=== PATIENT | female | born 2000 | race African-American/Black ===

== ENCOUNTER 2024-03-30 06:52 | Emergency (ER) | payer OTHER, SELFPAY ==
[2024-03-30 07:15] VITALS: BP 109/80; PULSE 80; RESP 16; TEMP 36.7; O2SAT 100
[2024-03-30] MEDS: HYDROcodone/acetaminophen (*CRX) 5-325 MG TABLET 1 TAB PO (08:10)
--- NOTE | 2024-03-30 08:58 | ED.SKABFB ---
HPI - Skin/Abscess/Foreign Bdy General Chief complaint: Skin/Abscess/Foreign Body Stated complaint: abcess to buttocks Time Seen by Provider: 03/30/24 07:06 History of Present Illness HPI narrative: Patient is a 23-year-old female who presents ER with pain to the right buttock. Ongoing over last 2 days. Has pain with sitting. Concerned she has infection. No pain around the rectum. No fevers or chills or sweats. Patient is currently 6 weeks in gestation, . She has no pelvic pain/vaginal bleeding/vaginal discharge. No urinary symptoms. Related Data Allergies Allergy/AdvReac Type Severity Reaction Status Date / Time No Known Allergies Allergy Verified 03/30/24 07:12 Review of Systems Constitutional: Constitutional: Reports no additional constitutional complaints Cardiovascular: Cardiovascular: Reports no additional cardiovascular complaints Respiratory: Respiratory: Reports no additional respiratory complaints Gastrointestinal: Gastrointestinal: Reports no additional gastrointestinal complaints Integumentary/Breasts: Comments: Abscess/redness left buttock PMFSH Past Medical History Medical History (Updated 03/30/24 @ 09:27 by Bari Patten MD) Healthy female adult Exam Narrative: GENERAL: Well-appearing, well-nourished, and in no acute distress. HEAD: Normocephalic, atraumatic. CHEST: Clear to auscultation. No respiratory distress. HEART: Regular rate and rhythm. Normal peripheral pulses. EXTREMITIES: Normal range of motion. No edema. SKIN: Warm, dry, no rash. pilonidal cyst on the right side of the gluteal cleft. Tender palpation with slight induration. NEURO: Alert and oriented x3. PSYCH: Normal mood and affect. Course Vital Signs Vital signs: Vital Signs Temperature 98.1 F 03/30/24 07:15 Pulse Rate 80 03/30/24 07:15 Respiratory Rate 16 03/30/24 07:15 Blood Pressure 109/80 03/30/24 07:15 Pulse Oximetry 100 03/30/24 07:15 Temperature 98.1 F 03/30/24 07:15 Pulse Rate 80 03/30/24 07:15 Respiratory Rate 16 03/30/24 07:15 Blood Pressure 109/80 03/30/24 07:15 Pulse Oximetry 100 03/30/24 07:15 Procedures Abscess I/D pilonidal: Date of Incision: 03/30/24 Time of Incision: 08:59 Side (if applicable): right Local Anesthetic: lidocaine 1% and with epi Amount of anesthesia used (mL): 4 Technique: incised with #11 blade Packing used?: iodoform I&D Results: Pus MDM - Skin/Abscess/Foreign Bdy MDM Narrative Medical decision making narrative: Cyst drained. Will refer to general surgery. Discussed wound care. Discharge Plan Discharge Clinical Impression: Pilonidal cyst with abscess Patient Disposition: Home, Self-Care Condition: Stable Instructions: Antibiotic Form, Pilonidal Cyst (ED) Additional Instructions: You had a cystic abscess incised and drained. You will need to remove your packing in 2 days. You should follow-up with general surgery for further evaluation. He will be started on antibiotics to help with your infection. Prescriptions: New cephalexin 500 mg capsule 500 mg PO Q8H Qty: 21 0RF Follow-up/Referrals: Walker Summers MD [Physician] - 1 Week UNKNOWN,DOCTOR [Primary Care Provider] - Stand Alone Forms: Work/School Release IP
== END 2024-03-30 09:39 | disposition home or self-care (01) ==
PROVIDERS: Emergency Provider Emergency Medicine
DX: L05.01 Pilonidal cyst with abscess (principal)
CPT/HCPCS: 10081; 99283; A9270

== ENCOUNTER 2024-06-09 07:45 | Observation (INO) | payer OTHER, SELFPAY ==
[2024-06-09] VITALS (18 sets, daily range): BP systolic 84–117; BP diastolic 51–78; PULSE 70–102; RESP 12–20; TEMP 36.3–36.8; O2SAT 92–100; BMI 26.6
--- NOTE | 2024-06-09 08:14 | ED.SKABFB ---
HPI - Skin/Abscess/Foreign Bdy General Chief complaint: Skin/Abscess/Foreign Body Stated complaint: I have a boil on my butt Time Seen by Provider: 06/09/24 08:00 Source: patient Mode of arrival: ambulatory Limitations: no limitations History of Present Illness HPI narrative: 23 years old female came to the ED by private car complaining of pain and lump like feeling at the left buttock close to her anus started few days ago. She denies any fever, chills, nausea, vomiting. Patient is 15 weeks . On vitamins. Related Data Home Medications Medication Instructions Recorded Confirmed vit no.95-ferrous 1 tablet PO DAILY 06/09/24 06/09/24 fumarate 28 mg-folic acid 800 mcg tablet () Allergies Allergy/AdvReac Type Severity Reaction Status Date / Time No Known Allergies Allergy Verified 06/09/24 16:48 Review of Systems Review of Systems: All systems reviewed & are unremarkable except as noted in HPI and below PMFSH Past Medical History Medical History 16 weeks gestation of Healthy female adult Perirectal abscess Social History Social History Smoking status: Never smoker Alcohol intake: former Drinks per week: 10 Substance use: never Substance use type: does not use Do You Feel Safe in your Home?: Yes Lack of Transportation: No Lack of Food: Never True Current Housing: I Have Housing Concerned About Future Housing: No Difficulty Paying Gas/Electric Bills: No Difficulty Paying for Meds: No Currently Unemployed: No Education: Decline to Answer Difficulty w/ Childcare or Family Care: No Spiritual care concerns: No Exam Narrative: General appearance: Well-developed, well-nourished Skin: Normal color, left buttock exam showed 8 x 8 cm skin induration diffusely tender, erythematous 2 cm close to the anus. No discharge Head: Normocephalic, nontraumatic Eyes: Clear conjunctiva ENT: Oropharynx normal, ears normal, nose normal Neck: Supple, nontender Chest and respiratory: Airway patent, no respiratory distress, no accessory muscle use Heart: Regular rate/rhythm Abdomen: Soft, nontender, no organomegaly, quiet bowel sounds Vascular: Normal peripheral pulses, normal capillary refill. Musculoskeletal: Normal range of motion, nontender back Neurologic: Alert and oriented ?3, SYSTEMS SUPPORT SPECIALIST is normal as tested, no gross motor deficit Course Consultations Consultation #1: DR PEREZ CONSULT OB, NPO Date: 06/09/24 Time: 08:38 Consultation #2: DR. FULLER CHECK HEART TONE BEFORE AND AFTER THE PROCEDURE. NO OBGYN MONITORING IF SHE IS LESS THAN 24 WEEKS Date: 06/09/24 Time: 08:46 Vital Signs Vital signs: Vital Signs Temperature 36.6 C 06/09/24 08:03 Pulse Rate 100 06/09/24 08:03 Respiratory Rate 15 06/09/24 08:03 Blood Pressure 99/78 L 06/09/24 08:03 Pulse Oximetry 100 06/09/24 08:03 Temperature 36.6 C 06/10/24 12:01 Pulse Rate 72 06/10/24 12:01 Respiratory Rate 14 06/10/24 12:01 Blood Pressure 99/55 L 06/10/24 12:01 Pulse Oximetry 100 06/10/24 12:01 Oxygen Delivery Room Air 06/10/24 08:50 Oxygen Flow Rate 8 06/09/24 14:30 Fraction of Inspired Oxygen 21 06/10/24 08:35 MDM - Skin/Abscess/Foreign Bdy MDM Narrative Medical decision making narrative: Differential diagnosis perianal abscess DR. JIMÉNEZ WELL TAKE PATIENT TO THE OR FOR INCISION AND DRAINAGE Differential Diagnosis Differential diagnosis: Likely other (As above) Lab Data 06/10/24 07:26
--- NOTE | 2024-06-09 08:47 | PC.NURSE ---
Pt reports last intake 0400 today cereal with milk, denies eating or drinking after that
[2024-06-09 08:55] LABS: Basophils Absolute Auto 0.1 K/mm3 (0.0-0.1); Basophils Percent Auto 0.6 % (0.2-1.2); Eosinophils Absolute Auto 0.1 K/mm3 (0-0.3); Eosinophils Percent Auto 1.3 % (0-4.4); Hematocrit 26.5 % (37.0-47.0); Hemoglobin 9.3 g/dL (12.0-15.0); Immature Granulocyte Absolute 0.04 K/mm3 (0.00-0.031); Immature Granulocyte Percent A 0.5 % (0-0.5); Lymphocytes Percent Auto 16.3 % (18.3-44.2); Mean Corpuscular HGB Conc 35.1 g/dl (32-36); Mean Corpuscular Hemoglobin 31.7 pg (26-34); Mean Corpuscular Volume 90.4 fl (80-100); Mean Platelet Volume 9.1 fl (7.4-10.4); Monocytes Absolute Auto 0.5 K/mm3 (0.1-0.6); Monocytes Percent Auto 6.5 % (2.6-8.5); Neutrophils Percent Auto 74.8 % (45.5-73.1); Platelet Count Result 196 k/mm3 (150-375); Red Blood Count 2.93 M/mm3 (4.2-5.4); Red Cell Distribution Width 13.5 % (11.5-14.5)
[2024-06-09 09:09] LABS: Alanine Aminotransferase 43 U/L (6-35); Alkaline Phosphatase 90 U/L (38-126); Anion Gap 9 mmol/L (4-12); Aspartate Amino Transferase 19 U/L (14-36); Bilirubin,Total 0.4 mg/dL (0.2-1.3); Blood Urea Nitrogen 5 mg/dL (7-17); Calcium 8.7 mg/dL (8.4-10.2); Carbon Dioxide 24 mmol/L (22-30); Chloride 105 mmol/L (98-107); Estimated CRCL calculation 149 ml/min; Estimated Glomerular Filt Rate > 60; Glucose 78 mg/dL (65-110); Potassium 3.8 mmol/L (3.4-5.0); Sodium 138 mmol/L (137-145)
[2024-06-09] MEDS: ONDANSETRON INJ 4 MG/2 ML VIAL IV PUSH (10:10)
[2024-06-09] MEDS: MORPHINE SULFATE (*CRX) 4 MG/ML INJ IV PUSH (10:11)
--- NOTE | 2024-06-09 13:27 | WPDHPUPDATE1 ---
History and Physical Update Update Date/Time: 06/09/24 13:27 History and Physical has been reviewed, including an updated exam of the patient. There are NO changes in the patient's condition. Risks, benefits, and alternatives have been discussed and questions answered. Patient agrees to proceed with procedure.
--- NOTE | 2024-06-09 13:27 | PM.IMHP ---
H&P: HPI History of Present Illness Date/Time: 06/09/24 13:27 Chief Complaint: Perirectal pain and swelling Narrative: This is a 23-year-old woman who presented to the emergency department with perirectal pain and swelling. She began noticing this about 2 or 3 days ago and it has continued to worsen. She denies any fevers or chills. About 2 months ago she did have a pilonidal abscess but has never had problems with abscesses prior to this. Denies any drainage or rectal bleeding. Review of Systems Review of Systems: All systems reviewed & are unremarkable except as noted in HPI and below Eyes: Eyes: Denies change in vision ENT: Denies hearing loss, Denies neck pain and Denies sore throat Cardiovascular: Cardiovascular: Denies chest pain and Denies dyspnea Respiratory: Respiratory: Denies cough, Denies dyspnea and Denies wheezing Gastrointestinal: Gastrointestinal: Reports as per HPI Genitourinary: Genitourinary: Denies hematuria and Denies dysuria Musculoskeletal: Musculoskeletal: Denies arthralgias, Denies joint swelling and Denies neck pain Allergic/Immunologic: Allergic/Immunologic: Denies wheezing PMFSH Past Medical History Medical History Healthy female adult Meds Home Medications and Allergies Home Medications Medication Instructions Recorded Confirmed Type cephalexin 500 mg capsule 500 mg PO Q8H #21 caps 03/30/24 Rx Allergies Allergy/AdvReac Type Severity Reaction Status Date / Time No Known Allergies Allergy Verified 06/09/24 08:03 Vital Signs Vital Signs - 24 hr 06/09/24 08:03 06/09/24 08:50 06/09/24 09:57 Temperature 36.6 C Pulse Rate 100 94 84 Respiratory Rate 15 15 15 Blood Pressure 99/78 L 97/63 L 105/63 Pulse Oximetry 100 100 100 06/09/24 12:19 06/09/24 13:09 Temperature 36.8 C Pulse Rate 83 88 Respiratory Rate 14 14 Blood Pressure 92/52 L 107/73 Pulse Oximetry 100 100 Exam Const: General: alert; No acute distress Orientation/consciousness: patient oriented x3 Limitations: no limitations HENMT: Head: normocephalic and atraumatic Ears: hearing grossly normal bilaterally Face/Nose/Sinus: Normal external nose present and Normal nares present Mouth: Yes Normal oral and palatal mucosa present and Yes moist mucous membranes Eyes: General: appearance normal, both eyes and all related structures Conjunctivae: conjunctivae normal Sclera: sclerae normal Pupils: Equal, round and reactive pupils present EOM: EOMs intact bilaterally Neck: Neck: normal visual inspection, full ROM, no lymphadenopathy, supple and no JVD Lymphatic: no lymphadenopathy noted Chest: Chest palpation & inspection: normal inspection of the chest Resp: Effort & Inspection: normal respiratory effort and able to speak in complete sentences Auscultation: clear to auscultation bilaterally Percussion: percussion normal Cardio: Jugular venous distension: no JVD Rate: regular rate Rhythm: regular rhythm Heart sounds: S1 normal heart sound present and S2 normal heart sound present Peripheral pulses: Peripheral pulses 2+ throughout GI: Inspection: normal to inspection GI Palp: No abdominal tenderness, Yes Soft to palpation, No Guarding due to palpation present (GI), No Hernia present and No Rebound tenderness present Percussion: Yes normal to percussion Auscultation: normal bowel sounds Rectal Exam: other (Right perirectal pain and fluctuance measuring 4-6 cm) : General: Yes no CVA tenderness Back/Spine/Pelvis: Back: no CVA tenderness Skin: General skin exam: normal color and dry skin Neuro: General: patient oriented x3, gait normal, moves all extremities, no focal motor deficits and CN's II-XI intact bilaterally Cranial nerves: Yes Equal, round and reactive pupils present Speech: normal speech Extrem: General: normal to inspection and capillary refill normal H&P: Results Labs Labs: Short CBC 06/09/24 Range/Units
--- NOTE | 2024-06-09 13:30 | SUR.PREOP ---
Per Dr. Isra conner to give zosyn now.
--- NOTE | 2024-06-09 13:38 | WPDANESEPP ---
Anes - Eval Pre Procedure Procedure: Operation Date: 06/09/24 16:00 Proposed Procedures p Incision and Drainage Hyacinth-Rectal Abscess - Lane Dhaliwal DO Date/Time: 06/09/24 13:38 Preop Diagnosis: Hyacinth rectal abscess Pre Op Diagnosis: I have a boil on my butt Patient Data Age: 23 Gender: F Height: 1.55 m Weight: 64 kg Last Vital Signs Temp 98.2 F 06/09/24 13:09 Pulse 88 06/09/24 13:09 Resp 14 06/09/24 13:09 BP 107/73 06/09/24 13:09 Pulse Ox 100 06/09/24 13:09 Allergies Allergy/AdvReac Type Severity Reaction Status Date / Time No Known Allergies Allergy Verified 06/09/24 13:36 Home Medications Medication Instructions Recorded Confirmed Type vit no.95-ferrous tablet PO 06/09/24 History fumarate 28 mg-folic acid 800 mcg tablet () Laboratory Tests 06/09/24 08:46 WBC 8.0 K/mm3 (4.5-10.0) RBC 2.93 L M/mm3 (4.2-5.4) Hgb 9.3 L g/dL (12.0-15.0) Hct 26.5 L % (37.0-47.0) MCV 90.4 fl (80-100) MCH 31.7 pg (26-34) MCHC 35.1 g/dl (32-36) RDW 13.5 % (11.5-14.5) Plt Count 196 k/mm3 (150-375) MPV 9.1 fl (7.4-10.4) Immature Gran % (Auto) 0.5 % (0-0.5) Neut % (Auto) 74.8 H % (45.5-73.1) Lymph % (Auto) 16.3 L % (18.3-44.2) [place] % (Auto) 6.5 % (2.6-8.5) Eos % (Auto) 1.3 % (0-4.4) Baso % (Auto) 0.6 % (0.2-1.2) Lymph # (Auto) 1.30 K/mm3 (0.9-3.2) [place] # (Auto) 0.5 K/mm3 (0.1-0.6) Eos # (Auto) 0.1 K/mm3 (0-0.3) Baso # (Auto) 0.1 K/mm3 (0.0-0.1) Abs Immat Gran (auto) 0.04 H K/mm3 (0.00-0.031) Absolute Neuts (auto) 6.0 K/mm3 (1.3-6.7) Absolute Nucleated RBC 0.000 K/mm3 (0.0-0.012) Nucleated RBC % 0.0 % (0.0-0.2) Sodium 138 mmol/L (137-145) Potassium 3.8 mmol/L (3.4-5.0) Chloride 105 mmol/L (98-107) Carbon Dioxide 24 mmol/L (22-30) Anion Gap 9 mmol/L (4-12) BUN 5 L mg/dL (7-17) Creatinine 0.40 L mg/dL (0.7-1.0) Estim Creat Clear Calc 149 ml/min Estimated GFR > 60 (59 - ) Glucose 78 mg/dL (65-110) Calcium 8.7 mg/dL (8.4-10.2) Total Bilirubin 0.4 mg/dL (0.2-1.3) AST 19 U/L (14-36) ALT 43 H U/L (6-35) Alkaline Phosphatase 90 U/L (38-126) Total Protein 7.0 g/dL (6.3-8.2) Albumin 4.0 g/dL (3.5-5.1) Patient hx anesthesia problems: none Family hx anesthesia problems: none Results Review: All pre-operative results and documents have been reviewed as part of the pre-operative evaluation. [facility] Past Medical History Medical History 16 weeks gestation of Healthy female adult Perirectal abscess Exam Day of Procedure 06/09/24 13:38 Patient weight: overweight Heart: regular rate and rhythm Lungs: clear to auscultation Airway: Mallampati scale class II
[2024-06-09] MEDS: PIPERACILLN/TAZ 3.375GM/NS50ML 3.375 GM/50 ML BAG IVPB ×2 (13:44→13:50)
[2024-06-09] MEDS: LACTATED RINGERS 1,000 ML 30 ML IV CONT (13:44)
--- NOTE | 2024-06-09 13:45 | WPDANESEPPF ---
Anes - Initial Pre Proc Eval Procedure: Operation Date: 06/09/24 16:00 Proposed Procedures p Incision and Drainage Hyacinth-Rectal Abscess - Lane Dhaliwal DO Date/Time: 06/09/24 13:45 Surgeon: Lane Dhaliwal DO Pre Op Diagnosis: I have a boil on my butt Patient Data Age: 23 Gender: F Height: 1.55 m Weight: 63.8 kg Last Vital Signs Temp 36.4 C 06/09/24 13:10 Pulse 99 06/09/24 13:10 Resp 16 06/09/24 13:10 BP 104/66 06/09/24 13:10 Pulse Ox 100 06/09/24 13:10 O2 Del Method Room Air 06/09/24 13:10 Allergies Allergy/AdvReac Type Severity Reaction Status Date / Time No Known Allergies Allergy Verified 06/09/24 13:36 Home Medications Medication Instructions Recorded Confirmed Type vit no.95-ferrous tablet PO 06/09/24 History fumarate 28 mg-folic acid 800 mcg tablet () Laboratory Tests 06/09/24 08:46 WBC 8.0 K/mm3 (4.5-10.0) RBC 2.93 L M/mm3 (4.2-5.4) Hgb 9.3 L g/dL (12.0-15.0) Hct 26.5 L % (37.0-47.0) MCV 90.4 fl (80-100) MCH 31.7 pg (26-34) MCHC 35.1 g/dl (32-36) RDW 13.5 % (11.5-14.5) Plt Count 196 k/mm3 (150-375) MPV 9.1 fl (7.4-10.4) Immature Gran % (Auto) 0.5 % (0-0.5) Neut % (Auto) 74.8 H % (45.5-73.1) Lymph % (Auto) 16.3 L % (18.3-44.2) [place] % (Auto) 6.5 % (2.6-8.5) Eos % (Auto) 1.3 % (0-4.4) Baso % (Auto) 0.6 % (0.2-1.2) Lymph # (Auto) 1.30 K/mm3 (0.9-3.2) [place] # (Auto) 0.5 K/mm3 (0.1-0.6) Eos # (Auto) 0.1 K/mm3 (0-0.3) Baso # (Auto) 0.1 K/mm3 (0.0-0.1) Abs Immat Gran (auto) 0.04 H K/mm3 (0.00-0.031) Absolute Neuts (auto) 6.0 K/mm3 (1.3-6.7) Absolute Nucleated RBC 0.000 K/mm3 (0.0-0.012) Nucleated RBC % 0.0 % (0.0-0.2) Sodium 138 mmol/L (137-145) Potassium 3.8 mmol/L (3.4-5.0) Chloride 105 mmol/L (98-107) Carbon Dioxide 24 mmol/L (22-30) Anion Gap 9 mmol/L (4-12) BUN 5 L mg/dL (7-17) Creatinine 0.40 L mg/dL (0.7-1.0) Estim Creat Clear Calc 149 ml/min Estimated GFR > 60 (59 - ) Glucose 78 mg/dL (65-110) Calcium 8.7 mg/dL (8.4-10.2) Total Bilirubin 0.4 mg/dL (0.2-1.3) AST 19 U/L (14-36) ALT 43 H U/L (6-35) Alkaline Phosphatase 90 U/L (38-126) Total Protein 7.0 g/dL (6.3-8.2) Albumin 4.0 g/dL (3.5-5.1) Patient hx anesthesia problems: none Family hx anesthesia problems: none Results Review: All pre-operative results and documents have been reviewed as part of the pre-operative evaluation. [facility] Past Medical History Medical History 16 weeks gestation of Healthy female adult Perirectal abscess Anes - Eval Final PreProcedure Day of Procedure 06/09/24 13:45 Patient weight: normal Heart: regular rate and rhythm Lungs: clear to auscultation Airway: Mallampati scale class II Neurological: alert and oriented Last oral intake: >/= 8 hours ASA classification: II Emergent: no Anesthetic plan: proceed Anesthesia type and monitoring: general GIVS and standard monitoring Results Review: All pre-operative results and documents have been reviewed as part of the pre-operative evaluation. Informed Consent: The patient's anesthetic plan and its attendant risks and benefits were discussed with the patient/family/POA. Questions were solicited and answers provided to the satisfaction of the patient/family/POA.
[2024-06-09] MEDS: BUPIVACAINE/EPINEPHRINE 0.5% 10 ML VIAL 30 ML INFILTRATE (13:59)
--- NOTE | 2024-06-09 14:23 | P.OP_ITS ---
Procedure Note - Detailed Date of Procedure 06/09/24 Pre-op Diagnosis Perirectal abscess Post-op Diagnosis Same Procedure Performed Incision and drainage of complicated perirectal abscess Surgeon Lane Dhaliwal, DO Anesthesia MAC and Local (0.5% bupivacaine with epinephrine) Indications This is a 23-year-old woman who presented to the emergency department with complaints perirectal pain and swelling. She began having symptoms about 2-3 days ago and they have progressed since then. She denies any fevers or chills. She did have a pilonidal abscess about 2 months ago but denies any other recent infection problems. The patient is about 16 weeks . She denies any other related complications in the past. She was found to have a large right perirectal abscess that was very tender to palpation. Discussions were made with the patient about treatment options and decision was made to p francheska with incision and drainage of perirectal abscess in the operating room under anesthesia. Findings Incision and drainage of perirectal abscess was performed. The patient was found to have about a 6 cm area of fluctuance in the right perirectal region. An incision was made about 2 cm from the anal verge directly into the area fluctuance. About 20 mL of purulence fluid was drained. Cultures were taken for aerobic and anaerobic culture and sensitivity. Loculations were broken up and then the abscess cavity was irrigated with sterile saline. The abscess was then packed with half-inch iodoform gauze. No specimens were obtained for pathology. Description of Procedure Procedure as well as risks, benefits, and alternatives were discussed with the patient. Written consent was obtained and placed in chart prior to procedure. Patient was brought back to surgical suite. She was placed supine on operating table. Time-out was done to confirm patient and procedure. IV sedation was administered by the anesthesia department. The patient was then placed in lithotomy position in stirrups and rotated slightly to the left. Her perirectal region was prepped and draped in sterile fashion using Betadine prep. The area of fluctuance was palpated in the right perirectal region. 0.5% bupivacaine with epinephrine was infiltrated locally over this region. A 2 cm cruciate incision was then made using a 15 blade scalpel directly over the area of fluctuance. I entered into the abscess cavity and about 20 mL of purulence fluid was drained. A curved hemostat was then inserted and loculations were broken up. I then irrigated the cavity with sterile saline. Hemostasis appeared. Then packed the wound with half-inch iodoform gauze. Fluff gauze, ABD pad, and mesh underwear were then applied. The patient was then awakened from anesthesia and transferred to recovery. Estimated Blood Loss 5 Packing Yes (1/2 inch iodoform gauze) Complications No immediate complications Condition Stable Disposition Observation [facility] Billing Surgery - Charge Forward: Surgery Billing
--- NOTE | 2024-06-09 14:33 | SUR.PHASEI ---
RN called OB 1st floor and spoke to Sheeba. RN told her I need heart tones in PACU please.
[2024-06-09] MEDS: fentaNYL CITRATE INJ (*CRX) 100 MCG/2 ML VIAL 25 MCG IV PUSH (15:04)
--- NOTE | 2024-06-09 15:36 | SUR.PHASEI ---
Spoke w/ Loulou in OB and she will be over soon to get the heart tones.
--- NOTE | 2024-06-09 15:50 | SUR.PHASEI ---
Patient meets PACU discharge criteria, OB RN unavailable at this time for heart tones post procedure. Patient placed in extended recovery status.
--- NOTE | 2024-06-09 16:05 | SUR.PHASEI ---
1604: ADRIAN Jamil at the bedside getting heart tones post procedure.
[2024-06-09] MEDS: LACTATED RINGERS 1,000 ML 100 ML IV CONT (16:34)
--- NOTE | 2024-06-09 16:43 | ADMGEN ---
This patient, Belen Giang, was admitted to 3 [facility] Surg Room 309-01. Patient/family oriented to hospital policies and general routines including ID bracelet, bed and alarms, visiting hours, pain management, procedures, bathroom and other care routines, personal items, smoking policy, room service/diet, and visiting hours. Information on how to activate the Rapid Response Team has been discussed. Patient/Family are encouraged to report perceived risks to care and to ask questions if they do not understand what they are told or what they should do.
[2024-06-09] MEDS: metroNIDAZOLE 500 MG/ISO 100ML 500 MG/100 ML BAG 100 MG IVPB ×2 (17:43→23:06)
[2024-06-09] MEDS: HYDROcodone/acetaminophen (*CRX) 7.5-325 MG TABLET 1 TAB PO ×2 (17:47→21:53)
[2024-06-10] MEDS: ONDANSETRON INJ 4 MG/2 ML VIAL IV PUSH (00:03)
[2024-06-10 01:45] VITALS: BP 106/61; PULSE 84; RESP 14; TEMP 36.1; O2SAT 100
[2024-06-10] MEDS: HYDROcodone/acetaminophen (*CRX) 7.5-325 MG TABLET 1 TAB PO ×2 (01:57→10:08)
[2024-06-10] MEDS: metroNIDAZOLE 500 MG/ISO 100ML 500 MG/100 ML BAG 100 MG IVPB (05:34)
[2024-06-10] MEDS: HYDROcodone/acetaminophen (*CRX) 5-325 MG TABLET 1 TAB PO (05:35)
[2024-06-10 05:52] VITALS: BP 105/62; PULSE 89; RESP 14; TEMP 36.1; O2SAT 100
[2024-06-10 08:00] VITALS: BP 115/62; PULSE 82; RESP 16; TEMP 36.8; O2SAT 100
[2024-06-10 08:35] VITALS: O2SAT 100
[2024-06-10 08:47] LABS: Hematocrit 25.9 % (37.0-47.0); Hemoglobin 8.8 g/dL (12.0-15.0); Mean Corpuscular Hemoglobin 31.4 pg (26-34); Mean Corpuscular Volume 92.5 fl (80-100); Mean Platelet Volume 9.8 fl (7.4-10.4); Platelet Count Result 206 k/mm3 (150-375); Red Cell Distribution Width 13.8 % (11.5-14.5)
[2024-06-10] MEDS: polyethylene glycoL 3350 17 GM POWD.PACK PO (08:50)
[2024-06-10 09:02] LABS: Anion Gap 8 mmol/L (4-12); Blood Urea Nitrogen 4 mg/dL (7-17); Calcium 8.8 mg/dL (8.4-10.2); Carbon Dioxide 25 mmol/L (22-30); Chloride 104 mmol/L (98-107); Estimated CRCL calculation 123 ml/min; Estimated Glomerular Filt Rate > 60; Glucose 77 mg/dL (65-110); Potassium 3.7 mmol/L (3.4-5.0); Sodium 137 mmol/L (137-145)
[2024-06-10 12:01] VITALS: BP 99/55; PULSE 72; RESP 14; TEMP 36.6; O2SAT 100
--- NOTE | 2024-06-10 12:50 | PM.DS ---
DS: Admitting Diagnosis Discharge Date 06/10/2024 Admitting Diagnosis Perirectal abscess, 16 weeks DS: Discharge Diagnosis Discharge Diagnosis (1) Perirectal abscess: Code(s): K61.1 - Rectal abscess Status: Acute (2) 16 weeks gestation of : Code(s): Z3A.16 - 16 weeks gestation of Status: Acute DS: Summary Hospital Course Reason for hospitalization: Perirectal abscess Hospital Course: This is a 23-year-old woman who is currently 16 weeks who presented to the emergency department with perirectal pain and swelling. She was found to have a right perirectal abscess which was very tender to palpation. Bedside procedure was unable to be performed due to patient's significant pain. She was then taken to the operating room 06/09/2024 for incision and drainage of perirectal abscess. Patient tolerated procedure well and was placed in the hospital overnight postoperatively. heart tones were obtained pre and postop and also on the morning of postop day 1. Patient was doing well and pain was controlled. Her packing was removed on postop day 1 and this was very tender, but no further packing was necessary. She was then discharged on postop day 1 in stable condition. Status at Discharge Functional status at discharge: independent ambulation Overall status at discharge: patient is progressing back to baseline Time Spent with Patient Time attestation: Total time spent providing and/or coordinating discharge services: Time spent: Less than 30 minutes Exam GI: Rectal Exam: other (Mild bloody drainage from perirectal abscess wound, no purulence drainage) DS: Data Data Completed and Pending Labs on day of discharge: Labs from last 24 hours 06/10/24 07:26 WBC 6.0 RBC 2.80 L Hgb 8.8 L Hct 25.9 L MCV 92.5 MCH 31.4 MCHC 34.0 RDW 13.8 Plt Count 206 MPV 9.8 Sodium 137 Potassium 3.7 Chloride 104 Carbon Dioxide 25 Anion Gap 8 BUN 4 L Creatinine 0.50 L Estim Creat Clear Calc 123 Estimated GFR > 60 Glucose 77 Calcium 8.8 Preliminary micro results at discharge 06/09/24 14:12 Anaerobic Culture - Preliminary Buttock Discharge Plan Discharge Attending physician on discharge: Lane Dhaliwal Discharging Clinician: Lane Dhaliwal Patient Disposition: Home, Self-Care Activity: may shower Diet: regular Wound Care Instructions: other - see discharge instructions Discharge Instructions: Wound care instructions Change gauze daily with 4x4s and ABD pad Okay to shower, no bathing or soaking until wound is completely healed Take OTC Tylenol as needed for mild pain. [place] prescription sent to pharmacy for moderate to severe pain. Call office for increasing pain, swelling, fevers, or other problems related to perirectal abscess Patient Instructions: Antibiotic Form Stand Alone Forms: General Discharge Information Follow-up/Referrals: UNKNOWN,DOCTOR [Primary Care Provider] - Lane Dhaliwal DO [Physician] - 2 Weeks Discharge Medications: New hydrocodone-acetaminophen 5-325 mg tablet 1 tablet PO Q4H PRN (Reason: pain) Qty: 10 0RF Continued PNV cmb#95-ferrous fumarate-FA [] 28 mg iron- 800 mcg tablet 1 tablet PO DAILY Date of admission: 06/09/24 16:07 Primary Care Provider: UNKNOWN,DOCTOR Admitting Provider: Lane Dhaliwal Attending physician on admission: Lane Dhaliwal Condition: Improved
--- NOTE | 2024-06-10 13:52 | WPDANESPN ---
Anes - Prog Note Post-Op Date/Time: 06/10/24 13:52 Cardiovascular status: normal Respiratory status: normal Airway patency: baseline Mental status: baseline Post-Op hydration status: normal Vital Signs: Last Vital Signs Temp 36.6 C 06/10/24 12:01 Pulse 72 06/10/24 12:01 Resp 14 06/10/24 12:01 BP 99/55 L 06/10/24 12:01 Pulse Ox 100 06/10/24 12:01 O2 Del Method Room Air 06/10/24 08:50 O2 Flow Rate 8 06/09/24 14:30 FiO2 21 06/10/24 08:35 Pain Score (VAS): 03/08 I/O: Intake & Output 06/09/24 06/10/24 06/10/24 23:59 07:59 15:59 Intake Total 1221 1100 118 Balance 1221 1100 118 Laboratory Tests 06/10/24 07:26 06/10/24 07:26 06/10/24 07:26 WBC 6.0 RBC 2.80 L Hgb 8.8 L Hct 25.9 L MCV 92.5 MCH 31.4 MCHC 34.0 RDW 13.8 Plt Count 206 MPV 9.8 Sodium 137 Potassium 3.7 Chloride 104 Carbon Dioxide 25 Anion Gap 8 BUN 4 L Creatinine 0.50 L Estim Creat Clear Calc 123 Estimated GFR > 60 Glucose 77 Calcium 8.8 Microbiology 06/09/24 14:12 Buttock Anaerobic Culture - Preliminary Post-procedural complaints: none Patient Feedback: Patient satisfied with anesthetic care.
== END 2024-06-10 13:30 | disposition home or self-care (01) ==
LOC: ANHED 09:02 → ANHSURGERY 12:44 → ANH3MEDSUR 16:14
PROVIDERS: Admitting Provider Surgery; Emergency Provider Emergency Medicine; Visit Provider Surgery
PROC: (CPT 46040; principal; 2024-06-09 16:00)
DX: O26.892 Other specified pregnancy related conditions, second trimester (principal); K61.1 Rectal abscess; Z3A.16 16 weeks gestation of pregnancy
CPT/HCPCS: 46040; 36415; 80048; 80053; 85025; 85027; 87070; 87075; 87205; 96374; 96375; 99285; A9270; G0378; J0696; J1836; J2250; J2270; J2405; J2543; J3010; J7120